=== PATIENT | female | born 1940 | race Caucasian/White ===

== ENCOUNTER 2018-03-01 12:08 | Emergency (ER) | payer MEDICARE, BC ==
[2018-03-01] MEDS ORDERED: Neosporin TOPICAL OINT* 1 EA PACKET TOPICAL ONE (12:43)
[2018-03-01] MEDS ORDERED: Bacitracin OINTMENT* 0.5% 0.5 oz TUBE ONE (12:59)
[2018-03-01 13:29] VITALS: BP 168/72
--- NOTE | 2018-03-01 13:37 | ED ---
Skin Complaint - HPI Summary HPI Summary: Pt. presenting for skin tear to left lower leg skin teat that occurred today. Pt. states she was getting onto a boat when she struck her left leg off of boat. Last tetanus was within 5 years according to pt. Is not anticoagulated. Past medical of high cholesterol. Is not a DM. Pt. has no pain with walking. Symptoms are mild in severity. Touching affected area makes symptoms worse. Rest make symptoms better. - History of Current Complaint Chief Complaint: EDLacSutureRecheck Time Seen by Provider: 03/01/18 12:33 Stated Complaint: LT LEG INJURY Hx Obtained From: Patient Pain Intensity: 0 Pain Scale Used: 0-10 Numeric - Allergy/Home Medications Allergies/Adverse Reactions: Allergies Allergy/AdvReac Type Severity Reaction Status Date / Time cefadroxil Allergy See Comment Verified 03/01/18 12:20 Sulfa (Sulfonamide Allergy See Comment Verified 03/01/18 12:19 Antibiotics) Home Medications: Home Medications Atorvastatin* [Lipitor*] 20 mg PO DAILY 03/01/18 [History Confirmed 03/01/18] ISOtretinoin [Isotretinoin] 10 mg PO DAILY 03/01/18 [History Confirmed 03/01/18] Vit A/Vit C/Vit E/Zinc/Copper [Preservision Areds Softgel] 1 each PO DAILY 03/01 [History Confirmed 03/01/18] PMH/Surg Hx/FS Hx/Imm Hx Infectious Disease History: No Infectious Disease History: Denies: Traveled Outside the [place] in Last 30 Days - Social History Alcohol Use: None Substance Use Type: Reports: None Smoking Status (MU): Never Smoked Tobacco Review of Systems Positive: Other - Skin tears to left lower leg All Other Systems Reviewed And Are Negative: Yes Physical Exam Triage Information Reviewed: Yes Vital Signs On Initial Exam: Initial Vitals Temp Pulse Resp BP Pulse Ox 97 F 76 17 155/75 96 03/01/18 12:14 03/01/18 12:14 03/01/18 12:14 03/01/18 12:14 03/01/18 12:14 Vital Signs Reviewed: Yes Appearance: Positive: Well-Appearing - Patient sitting in bed in no acute distress. Family present. Skin: Positive: Warm, Dry Head/Face: Positive: Normal Head/Face Inspection Eyes: Positive: Normal Neck: Positive: Supple Musculoskeletal: Positive: Other - Large area of superficial skin tear noted to the anterior left lower extremity. No bony tenderness. Leg is neurovascularly intact. No active bleeding. Neurological: Positive: Normal, CN Intact II-III Psychiatric: Positive: Affect/Mood Appropriate Diagnostics - Vital Signs Vital Signs Temp Pulse Resp BP Pulse Ox 03/01/18 13:27 98.2 F 78 18 168/72 98 03/01/18 12:14 97 F 76 17 155/75 96 - Laboratory Lab Statement: Any lab studies that have been ordered have been reviewed, and results considered in the medical decision making process. Course/Dx - Course Course Of Treatment: Patient presenting for large skin tear to left lower extremity. She has no bony tenderness on exam and is embedded without difficulty. No imaging was ordered. Patient's tetanus is up-to-date. Wounds were cleaned and dressed. Advised patient to keep wounds clean and dry. Warm soap and water twice a. Can apply [id number] antibiotic ointment such as Neosporin. To ice and elevate. Tylenol for Motrin as directed. Close follow- up with PCP for wound check in 2-3 days. To return to the ER for increased pain , redness, swelling or drainage from wound. Patient understands and agrees plan. - Diagnoses Provider Diagnoses: Skin tear Discharge - Sign-Out/Discharge Documenting (check all that apply): Patient Departure - Discharge Plan Condition: Good Disposition: HOME Patient Education Materials: Acute Wound Care (ED), Skin Tear (ED) Referrals: No Primary Care Phys,NOPCP [Primary Care Provider] - Additional Instructions: Call your PCP on Sunday to schedule an appointment for a wound check Keep wound clean and dry Can apply over the counter antibiotic ointment such as neosporin as directed Apply cool compresses to help with pain and swelling Can take Tylenol for pain as directed Return to ER for redness, swelling, or drainage from wound - Billing Disposition and Condition Condition: GOOD Disposition: Home
== END 2018-03-01 13:27 | disposition home or self-care (01) ==
LOC: ED 12:08
DX: S81.812A Laceration without foreign body, left lower leg, initial encounter (principal); W22.8XXA Striking against or struck by other objects, initial encounter; Y92.814 Boat as the place of occurrence of the external cause; Z88.2 Allergy status to sulfonamides; Z88.3 Allergy status to other anti-infective agents
CPT/HCPCS: 99281; A9270-GY